=== PATIENT | male | born 1950 | race Caucasian/White ===

== ENCOUNTER 2017-03-11 06:35 | Inpatient (IN) ==
[2017-03-11] MEDS ORDERED: Ondansetron 4 MG/2 ML VIAL ONE (06:49)
[2017-03-11] MEDS ORDERED: *HR* Propofol 200 MG/20 ML VIAL IVP ONE (06:49)
[2017-03-11] MEDS ORDERED: Lidocaine -MPF 2% 2 ML VIAL ONE ×2 (06:49)
[2017-03-11] MEDS ORDERED: Dexamethasone 4 MG/ML VIAL ONE (06:49)
[2017-03-11] MEDS ORDERED: *HR* Rocuronium Bromide 50 MG/5 ML VIAL ONE (06:50)
[2017-03-11] MEDS ORDERED: CeFAZolin Pre 2,000 MG/100 ML 2,000 MG/100 ML BAG IVPB ONE (07:00)
[2017-03-11] MEDS ORDERED: Lidocaine -MPF 1% 2 ML VIAL ID ONE (07:00)
[2017-03-11] MEDS ORDERED: Ringers Solution, Lactated 1,000 ML IVC SCH (07:00)
--- NOTE | 2017-03-11 07:30 | History & Physical Report ---
Date of Encounter: 03/11/17 Time of Encounter: 07:29 24 Hour HP Update - Instructions Instructions: If the History and Physical is less than 30 days old and was completed prior to A.M. admission and or procedure and has NOT been updated on calendar day of procedure please complete this update prior to performing procedure. - Update Patient reports changes in Medical Condition: No Changes in examination, assessment, or condition: No Changes in Medication: No Preop tests/diagnostics Reviewed: Yes Surgery Remains Indicated: Yes Consent for Planned Operative Procedure(s) Verified: Yes - Pre-Operative Checklist Preoperative Checklist Indicated: Yes Prophylactic Antibiotic Ordered: Yes Home Medications Include Beta Vikki: No Is VTE Prophylaxis Indicated?: Yes
--- NOTE | 2017-03-11 07:45 | Anesthesia Evaluation PreOp ---
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: Denies Any Significant HX Other Medical History: Renal (ckd stage 3), Diabetes Type II, Other (prostate cancer) Anesthesia History: No Prior Anesthetic Complications (never been under general anesthesia) Alcohol Use: none Drug use: none Medications and Allergies Aspirin [Lo-Dose Aspirin EC] 81 mg PO DAILY 01/15/17 [History] Atorvastatin [Lipitor] 10 mg PO HS 01/15/17 [History] Cholecalciferol (D-3) [Vitamin D] 2,000 unit PO DAILY 01/15/17 [History] Ciprofloxacin HCl [Cipro] 1,000 mg PO DAILY 01/15/17 [History] Cyanocobalamin (Vitamin B-12) [Vitamin B-12] 1,000 mcg SL DAILY 01/15/17 [ History] HYDROcodone/Acet 5/325 mg [Winfield 5-325 mg] 1 tab PO Q4H PRN #15 tab 01/15/17 [Rx ] Insulin Glargine,Hum.rec.anlog [Lantus Solostar] 16 unit SQ DAILY 01/15/17 [ History] Liraglutide [Victoza 3-Andrew] 1.8 mg SQ DAILY 01/15/17 [History] Lisinopril-HCTZ 20-12.5 [Prinzide 20-12.5] 1 tab PO DAILY 01/15/17 [History] Magnesium Oxide [Magnesium] 400 mg PO DAILY 01/15/17 [History] Metformin HCl [Glucophage] 1,000 mg PO BID 01/15/17 [History] Omeprazole [PriLOSEC] 40 mg PO DAILY 01/15/17 [History] glipiZIDE [Glucotrol] 5 mg PO 0800 01/15/17 [History] 3 Allergy/AdvReac Type Severity Reaction Status Date / Time No Known Allergies Allergy Verified 03/11/17 07:45 - Meds/Allergy Pre-op Review Medications Reviewed: Yes Allergies Reviewed: Yes Beta Blockers on Current Med List: No Anesthesia Results - Labs Laboratory Tests 02/19/17 03/06/17 16:36 10:03 WBC 6.4 Hgb 10.8 L Hct 32.6 L Plt Count 200 Sodium 140 Potassium 4.4 Chloride 110 H Carbon Dioxide 22 BUN 26 Creatinine 1.65 H Est GFR ( Amer) 51 L Est GFR (Non-Af Amer) 42 L BUN/Creatinine Ratio 16 Glucose 152 H - Imaging EKG: report reviewed, image reviewed (SR) Anesthesia Exam Last Vital Signs Temp 97.9 F 03/11/17 07:25 Pulse 104 03/11/17 07:25 Resp 20 03/11/17 07:25 BP 151/86 03/11/17 07:25 Pulse Ox 100 03/11/17 07:25 Weight: 93 kg - HEENT Pupil (Motor): Pupils equal, EOMI
[2017-03-11] MEDS ORDERED: *HR* Midazolam HCl 2 MG/2 ML VIAL ONE (07:59)
--- NOTE | 2017-03-11 08:08 | Anesthesia Evaluation PreOp ---
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: Denies Any Significant HX Other Medical History: Renal (stage 3 CKD), Diabetes Type II (insulin depedent; well controlled), GERD Anesthesia History: No Prior Anesthetic Complications Alcohol Use: none Drug use: none Medications and Allergies Aspirin [Lo-Dose Aspirin EC] 81 mg PO DAILY 01/15/17 [History] Atorvastatin [Lipitor] 10 mg PO HS 01/15/17 [History] Cholecalciferol (D-3) [Vitamin D] 2,000 unit PO DAILY 01/15/17 [History] Cyanocobalamin (Vitamin B-12) [Vitamin B-12] 1,000 mcg SL DAILY 01/15/17 [ History] Insulin Glargine,Hum.rec.anlog [Lantus Solostar] 16 unit SQ DAILY 01/15/17 [ History] Liraglutide [Victoza 3-Andrew] 1.8 mg SQ DAILY 01/15/17 [History] Lisinopril-HCTZ 20-12.5 [Prinzide 20-12.5] 1 tab PO BID 01/15/17 [History] Magnesium Oxide [Magnesium] 400 mg PO DAILY 01/15/17 [History] Metformin HCl [Glucophage] 1,000 mg PO BID 01/15/17 [History] Omeprazole [PriLOSEC] 40 mg PO DAILY 01/15/17 [History] glipiZIDE [Glucotrol] 5 mg PO 0800 01/15/17 [History] Ketorolac OPTH Soln [Acular] 1 drop OP QID 03/11/17 [History] PrednisoLONE Acetate 1% Opth [PredFORTE 1%] 1 drop OP BID 03/11/17 [History] 3 Allergy/AdvReac Type Severity Reaction Status Date / Time No Known Allergies Allergy Verified 03/11/17 07:45 - Meds/Allergy Pre-op Review Medications Reviewed: Yes Allergies Reviewed: Yes Beta Blockers on Current Med List: No Anesthesia Results - Labs Laboratory Tests 01/02/17 02/19/17 03/06/17 08:10 16:36 10:03 WBC 6.4 Hgb 10.8 L Hct 32.6 L Plt Count 200 Sodium 140 Potassium 4.4 Chloride 110 H Carbon Dioxide 22 BUN 26 Creatinine 1.65 H Est GFR ( Amer) 51 L Est GFR (Non-Af Amer) 42 L BUN/Creatinine Ratio 16 Glucose 152 H Est Mean Plasma Glucose 160 Hemoglobin A1c 7.2 H Calculated Osmolality 298 Calcium 8.9 Phosphorus 2.6 - Imaging EKG: report reviewed, image reviewed (SR) Anesthesia Exam Last Vital Signs Temp 97.9 F 03/11/17 07:25 Pulse 104 03/11/17 07:25 Resp 20 03/11/17 07:25 BP 151/86 03/11/17 07:25 Pulse Ox 100 03/11/17 07:25 Weight: 93 kg NPO (# of Hours): >> 8 hrs - HEENT Pupil (Motor): Pupils equal, EOMI Mallampati: I Teeth: Normal Oral Opening: Greater than 3 - AUTHOR AGENT LOC: Oriented AUTHOR AGENT Motor: Normal RUE, Normal LUE, Normal RLE, Normal LLE, Normal Face - Cardiac Rhythm: Regular Murmur: None - Pulmonary Breath Sounds: bilateral Clear Respiratory Effort: Symmetrical Anesthesia Assess/Plan ASA Score: 3 Modified [place] Scale for Level of Consciousness: Cooperative, oriented, and tranquil Anesthetic Plan: General Monitoring Plan: Standard Monitors Recovery Plan: PACU
[2017-03-11] MEDS ORDERED: Lidocaine -MPF 4% 5 ML AMPUL ONE (08:13)
[2017-03-11] MEDS ORDERED: *HR* Succinylcholine 200 MG/10 ML VIAL IVP ONE (08:13)
[2017-03-11] MEDS ORDERED: *HR* FentaNYL (PF) 100 MCG/2 ML VIAL ONE ×2 (08:41→10:01)
[2017-03-11] MEDS ORDERED: *HR* HYDROmorphone (PF) 1 MG/ML SYRINGE IVP PRN ×2 (10:00→15:20)
[2017-03-11] MEDS ORDERED: Ondansetron 4 MG/2 ML VIAL IVP PRN ×2 (10:00→15:20)
[2017-03-11] MEDS ORDERED: Albuterol 2.5 MG/3 ML NEBULIZER IH PRN (10:00)
[2017-03-11] MEDS ORDERED: Neostigmine Methylsulfate 3 MG/3 ML SYRINGE ONE (11:07)
[2017-03-11] MEDS ORDERED: *HR* HYDROmorphone 2 MG/ML SYRINGE ONE (12:00)
--- NOTE | 2017-03-11 13:03 | Operative Note ---
Date of procedure: 03/11/17 Pre-op diagnosis: Prostate cancer Post-op diagnosis: same Procedure: Robotic-assisted radical prostatectomy. Implants: 20 Turkmen Espinosa catheter. 19 Turkmen Zen drain. Complications: None. Anesthesia: VINCENZO Surgeon: Geoff Dupree Estimated blood loss (cc): 150 Specimen: Prostate Condition: stable Disposition: PACU Procedure in Detail: INDICATIONS FOR PROCEDURE: Mr. Figueroa is a 67 year-old male with history of elevated PSA. He was found on prostate needle biopsy to have Rigoberto 3+3 prostate cancer. He is now presenting for robotic assisted prostatectomy. He was informed of the risks of the procedure including but not limited to bleeding , infection, injury to other structures, need for further procedures, lymphocele , urinary incontinence, urine leak, erectile dysfunction, bladder neck contracture, rectal injury, and the risk of anesthesia. He is willing to proceed. PROCEDURE: After informed consent was obtained, the patient was taken to the operating room, placed supine on the table. He was given IV antibiotics for antibiotic coverage. He had MATHEW's and SCD's placed on the lower extremities for DVT prophylaxis. Induction of general anesthesia was performed. The arms were tucked and he was placed in lithotomy position. He was secured to the OR table with padding. He was prepped and draped in the usual sterile fashion. A Espinosa catheter was inserted. A 10mm incision was made in the infraumbilical region.. The Veress needle was introduced. The water drop test passed. Pneumoperitoneum was initiated with low pressures initially. The abomen was insufflated. I then placed a 12mm camera port through this incision using the visual obturator using the 8 mm robotic camera. Once the trocar was in place, the 0 degree camera for the robot was placed in the field and remaining trocars were placed. Robotic ports were placed x 2 on the right side. We placed another robotic port to the left of the umbilicus. We also placed a 12mm port in the left lower quadrant and a 5mm port superior and to the left of the umbilicus. Once all trocars were in place, the robot was docked to the patient and the monopolar scissors were placed on the right robotic arm. The bipolar [place] was in the left robotic arm and the Prograsp in the 4th arm. I performed a small amount of lysis of adhesions freeing up the sigmoid colon. We initially retracted the bowel with the 4th arm. The medial umbilical ligaments were cauterized and the bladder was taken down off the anterior abdominal wall using electrocautery. The bladder was dissected down to the endopelvic fascia. The bladder was then grasped with a 4th arm and retracted cephalad. We then swept the periprostatic fat off the prostate as well as the pelvic sidewall. We then incised the endopelvic fascia on both sides and carried the incision up to the prostatic apex, sweeping the levator fibers off of the prostate. The puboprostatic ligaments were carefully incised. 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 This seemed to dive into the prostate. I didn't feel that I could release it or dissect it out while at the same time avoiding entry into the prostate. A Hem-o-dom clip was placed on the abdominal side and on the prostate side it was cauterized with bipolar. The artery was then cut with scissors. I then turned my attention to the dorsal venous complex. We then placed an 0 Vicryl suture through the dorsal venous complex and tied it down with a surgeon' s knot. Once the dorsal venous complex was ligated, we then turned our attention to the bladder neck which was incised with the monopolar cautery until the catheter was visualized at the bladder neck. The posterior bladder neck was then opened using the cautery until the space between the prostate and the bladder neck was visualized. Eventually, the vas deferens and seminal vesicals were encountered. The vas deferens were cauterized and divided. We pulled the seminal vesicles up into the field to help retract the prostate in cephalad direction. Denonvillier's fascia was dissected off the prostate posteriorly. The left nerve bundle was then released sharply. I carefully divided the pedicles using multiple Hem-o- dom clips to clip the larger prostatic pedicle. Once the pedicles were controlled the nerves were carefully dissected off the posterior aspect of the prostate. Attention was then turned to the right side. The nerve bundle was again released sharply and the pedicles were controlled using Hem-o-dom clips. The nerve bundle was then carefully dissected off the posterior aspect of the prostate. We then used the 4th arm to place the prostate on stretch in cephalad direction. We then transected the dorsal venous complex. The stitch over the dorsal venous complex came off. There was a mild amount of bleeding from the dorsal vein. Once I got to the urethra this was incised with cold scissors. I cut across the urethra until the catheter was visualized. The catheter was removed and the posterior urethra was transected. The prostate was then freed. I then oversewed the dorsal venous complex using an 0 Vicryl suture in a running fashion. Hemostasis was adequate. The urethral vesicle anastomosis was then performed with a 3-0 V-Dom suture in running fashion starting at 6 o'clock position. With two sutures tied together we then ran the right side up about senior living. The left side was then run around until the bladder was reanastamosed to the urethra. The final 20 Turkmen catheter was placed into the bladder and balloon filled with 15 mL of sterile water. The bladder was irrigated. No leak was identified. A 19 Turkmen Zen drain was placed through the trocar down into the pelvis. The trocar was removed and drain sewn in place with a suture. The robot was then undocked from the patient. Using laparoscopic instruments I then moved the string from the Endo Catch bag over to the umbilical port with the assistance of the 8 mm robotic camera. After extending the incision slightly with the electrocautery the EndoCatch bag was then removed from the camera port. The abdominal fascia was then closed in a running fashion with 0 Vicryl suture. All incisions were instilled with 0.25% Marcaine. The remaining trocars were removed under direct vision and all incisions were then closed with 4-0 Monocryl in subcuticular fashion. The patient was then awakened from general anesthesia and brought to the recovery room in good condition. All sponge, needle, and instrument counts were correct.
[2017-03-11] MEDS ORDERED: Insulin Regular, Human 100 UNIT/ML IV ONE (13:16)
--- NOTE | 2017-03-11 14:06 | Anesthesia Evaluation Post Op ---
Date of Encounter: 03/11/17 Time of Encounter: 14:05 - Vital Signs Vital Signs: Last Vital Signs Temp 98.7 F 03/11/17 13:42 Pulse 92 03/11/17 13:52 Resp 16 03/11/17 13:52 BP 149/84 03/11/17 13:52 Pulse Ox 100 03/11/17 13:52 - Lungs Lungs: Clear Ascult./Percussion - Airway Airway: Non-obstructed - Cardiovascular Regular Rate - Mental Status Mental Status: Alert & Oriented, Answers Appropriately - Pain Pain Scale: 2 - Nausea Vomiting Nausea Vomiting: Not Present - Hydration Hydration: Ice chips, Espinosa catheter - Discharge PostOp Status: Transfer Patient to floor
[2017-03-11] MEDS ORDERED: Ketorolac 15 MG/ML VIAL IVP PRN (15:20)
[2017-03-11] MEDS ORDERED: D5% in Water 1,000 ML IVC PRN (15:20)
[2017-03-11] MEDS ORDERED: Naloxone 0.4 MG/ML INJ IVP PRN (15:20)
[2017-03-11] MEDS ORDERED: Dextrose Gel 15 GM PO PRN ×2 (15:20)
[2017-03-11] MEDS ORDERED: *HR* Dextrose 50 % in Water (Syg) 50 ML SYRINGE IVP PRN (15:20)
[2017-03-11] MEDS ORDERED: Acetaminophen 325 MG TABLET PO PRN (15:20)
[2017-03-11] MEDS ORDERED: ceFAZolin 2,000 MG in D5% in Water 100 ML IVPB SCH (16:00)
[2017-03-11] MEDS ORDERED: *HR* OxyCODONE Immed Rel 5 MG TABLET PO PRN (16:00)
[2017-03-11] MEDS: 0.9 % Sodium Chloride 1,000 ML IVC SCH (16:20)
[2017-03-11] MEDS ORDERED: CeFAZolin Pre 2,000 MG/100 ML 2,000 MG/100 ML BAG IVPB SCH (18:00)
[2017-03-11] MEDS: *HR* Heparin 5,000 UNIT/ML VIAL SQ SCH (18:33)
[2017-03-11] MEDS: Insulin LISPRO 300 UNITS/3 ML VIAL SQ SCH (18:34)
[2017-03-11] MEDS: ceFAZolin 2,000 MG in D5% in Water 100 ML IVPB SCH (20:47)
[2017-03-11] MEDS: Lisinopril-HCTZ 20-12.5mg TABLET PO SCH (21:15)
[2017-03-12] MEDS: Insulin LISPRO 300 UNITS/3 ML VIAL SQ SCH ×3 (00:31→13:19)
[2017-03-12] MEDS: 0.9 % Sodium Chloride 1,000 ML IVC SCH (00:32)
[2017-03-12] MEDS: ceFAZolin 2,000 MG in D5% in Water 100 ML IVPB SCH (02:17)
[2017-03-12 04:41] LABS: Basophils % 0.1 %; Eosinophils % 0.3 %; Hematocrit 30.1 % (37.5-50.1); Hemoglobin 9.9 g/dL (12.9-16.9); Immature Granulocytes % 0.3 % (0-4); Lymphocytes # 0.9 K/mcL (0.6-4.6); Lymphocytes % 13.4 %; Mean Corpuscular HGB Conc 32.9 g/dL (31.6-35.5); Mean Corpuscular Hemoglobin 25.8 pg (28.0-33.3); Mean Corpuscular Volume 78.4 fL (83.0-100.0); Mean Platelet Volume 9.7 fL (9.4-12.4); Monocytes # 0.7 K/mcL (0.0-1.3); Monocytes % 9.9 %; Neutrophils # 5.3 K/mcL (1.6-8.9); Platelet Count 191 K/mcL (140-400); Red Blood Count 3.84 M/mcL (4.19-5.50); Red Cell Distribution Width 13.7 % (11.5-14.5)
[2017-03-12 04:55] LABS: Calcium 8.3 mg/dL (8.6-10.8)
[2017-03-12 04:56] LABS: Potassium 4.2 mEq/L (3.5-4.5)
--- NOTE | 2017-03-12 07:14 | Urology Progress Note ---
Date of Encounter: 03/12/17 Time of Encounter: 07:11 - Assessment and Plan (1) Prostate cancer Current Visit: Yes Status: Acute Assessment and plan: Postop day #1 status post robotic cystoprostatectomy. He is doing well. We will advance his diet to clear liquids this morning. We'll try a general diet at lunch. I will order a PT consult to help ambulate. His drain output is looking good, and I will remove it later today. (2) Diabetes Current Visit: Yes Status: Acute Assessment and plan: Continue sliding scale for now. 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 His blood counts are stable after surgery. We will continue to monitor. No indication for transfusion. Qualifiers: Chronic kidney disease stage: stage 2 (mild) Qualified Code(s): N18.2 - Chronic kidney disease, stage 2 (mild); D63.1 - Anemia in chronic kidney disease ; D63.1 - Anemia in chronic kidney disease Progress Note Narrative: Postoperative day #1 status post robotic-assisted radical prostatectomy. Doing well. Pain is well-controlled. He denies nausea. He reports passing gas. He has not ambulated yet. Objective Initial Vital Signs Temp Pulse Resp BP Pulse Ox 97.9 F 104 20 151/86 100 03/11/17 07:25 03/11/17 07:25 03/11/17 07:25 03/11/17 07:25 03/11/17 07:25 - General physical appearance Present: well developed, well nourished, no distress - Respiratory Present: normal respiratory effort - Abdomen Present: soft (Incisions are clean and dry and intact. KISHA is serosanguineous.) - Genitourinary Present: other (Espinosa in place.) Urine Appearance: Present: Clear - Labs 03/12/17 04:12 03/12/17 04:12 Diabetes panel 03/12/17 Range/Units 04:12 Sodium 141 (136-145) mEq/L Potassium 4.2 (3.5-4.5) mEq/L Chloride 111 H (98-109) mEq/L Carbon Dioxide 23 (19-29) mEq/L BUN 25 (8-26) mg/dL Creatinine 1.93 H (0.72-1.25) mg/dL Glucose 144 H (70-99) mg/dL Calcium 8.3 L (8.6-10.8) mg/dL Calcium panel 03/12/17 Range/Units 04:12 Calcium 8.3 L (8.6-10.8) mg/dL Pituitary panel 03/12/17 Range/Units 04:12 Sodium 141 (136-145) mEq/L Potassium 4.2 (3.5-4.5) mEq/L Chloride 111 H (98-109) mEq/L Carbon Dioxide 23 (19-29) mEq/L BUN 25 (8-26) mg/dL Creatinine 1.93 H (0.72-1.25) mg/dL Glucose 144 H (70-99) mg/dL Calcium 8.3 L (8.6-10.8) mg/dL Adrenal panel 03/12/17 Range/Units 04:12 Sodium 141 (136-145) mEq/L Potassium 4.2 (3.5-4.5) mEq/L Chloride 111 H (98-109) mEq/L Carbon Dioxide 23 (19-29) mEq/L BUN 25 (8-26) mg/dL Creatinine 1.93 H (0.72-1.25) mg/dL Glucose 144 H (70-99) mg/dL Calcium 8.3 L (8.6-10.8) mg/dL - VTE Documentation of Mechanical Device: Graduated compression elastic hosiery Consult Discharge Plan - Plan Referrals: Ovi Wynn MD [Primary Care Provider] -
[2017-03-12] MEDS ORDERED: 0.9 % Sodium Chloride 1,000 ML IVC SCH (07:16)
[2017-03-12] MEDS: Lisinopril-HCTZ 20-12.5mg TABLET PO SCH (09:22)
[2017-03-12] MEDS: *HR* Heparin 5,000 UNIT/ML VIAL SQ SCH (09:22)
[2017-03-12 14:45] VITALS: BP 131/74
--- NOTE | 2017-03-12 16:12 | Discharge Summary ---
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 (3) Anemia Priority: Secondary Status: Acute Qualifiers: Chronic kidney disease stage: stage 2 (mild) Qualified Code(s): N18.2 - Chronic kidney disease, stage 2 (mild); D63.1 - Anemia in chronic kidney disease ; D63.1 - Anemia in chronic kidney disease - Discharge Medications Prescriptions: Ciprofloxacin [Cipro] 500 mg PO ONCE #1 tablet Docusate [Colace] 100 mg PO BID #60 capsule OxyCODONE Immed Rel [Roxicodone 5 MG] 5 mg PO Q6H PRN #20 tablet PRN Reason: Severe pain Home Medications: Aspirin [Lo-Dose Aspirin EC] 81 mg PO DAILY 01/15/17 [History] Atorvastatin [Lipitor] 10 mg PO HS 01/15/17 [History] Cholecalciferol (D-3) [Vitamin D] 2,000 unit PO DAILY 01/15/17 [History] Cyanocobalamin (Vitamin B-12) [Vitamin B-12] 1,000 mcg SL DAILY 01/15/17 [ History] Insulin Glargine,Hum.rec.anlog [Lantus Solostar] 16 unit SQ DAILY 01/15/17 [ History] Liraglutide [Victoza 3-Andrew] 1.8 mg SQ DAILY 01/15/17 [History] Lisinopril-HCTZ 20-12.5 [Prinzide 20-12.5] 1 tab PO BID 01/15/17 [History] Magnesium Oxide [Magnesium] 400 mg PO DAILY 01/15/17 [History] Metformin HCl [Glucophage] 1,000 mg PO BID 01/15/17 [History] Omeprazole [PriLOSEC] 40 mg PO DAILY 01/15/17 [History] glipiZIDE [Glucotrol] 5 mg PO 0800 01/15/17 [History] Ketorolac OPTH Soln [Acular] 1 drop OP QID 03/11/17 [History] PrednisoLONE Acetate 1% Opth [PredFORTE 1%] 1 drop OP BID 03/11/17 [History] Ciprofloxacin [Cipro] 500 mg PO ONCE #1 tablet 03/12/17 [Rx] Docusate [Colace] 100 mg PO BID #60 capsule 03/12/17 [Rx] OxyCODONE Immed Rel [Roxicodone 5 MG] 5 mg PO Q6H PRN #20 tablet 03/12/17 [Rx] Allergies/Adverse Reactions: 3 Allergy/AdvReac Type Severity Reaction Status Date / Time No Known Allergies Allergy Verified 03/11/17 07:45 Labs on day of discharge: Labs from last 24 hours 03/12/17 03/12/17 03/12/17 05:47 04:12 04:12 WBC 7.0 RBC 3.84 L Hgb 9.9 L Hct 30.1 L MCV 78.4 L MCH 25.8 L MCHC 32.9 RDW 13.7 Plt Count 191 MPV 9.7 Immature Gran % 0.3 Seg Neutrophils % 76.0 Lymphocytes % 13.4 Monocytes % 9.9 Eosinophils % 0.3 Basophils % 0.1 Neutrophils # 5.3 Lymphocytes # 0.9 Monocytes # 0.7 Eosinophils # 0.0 Basophils # 0.0 Sodium 141 Potassium 4.2 Chloride 111 H Carbon Dioxide 23 BUN 25 Creatinine 1.93 H Est GFR ( Amer) 42 L Est GFR (Non-Af Amer) 35 L BUN/Creatinine Ratio 13 Glucose 144 H POC Glucose 146 H Calculated Osmolality 299 Calcium 8.3 L 03/12/17 03/11/17 00:17 16:49 WBC RBC Hgb Hct MCV MCH MCHC RDW Plt Count MPV Immature Gran % Seg Neutrophils % Lymphocytes % Monocytes % Eosinophils % Basophils % Neutrophils # Lymphocytes # Monocytes # Eosinophils # Basophils # Sodium Potassium Chloride Carbon Dioxide BUN Creatinine Est GFR ( Amer) Est GFR (Non-Af Amer) BUN/Creatinine Ratio Glucose POC Glucose 178 H 259 H Calculated Osmolality Calcium Date of admission: 03/12/17 09:52 Primary care physician: Ovi Wynn MD Consults: 03/12/17 07:15 Consult to Physical Therapy [CONS] Routine Comment: Evaluate, develop and implement POC Reason for Consult: Assist with ambulation Discharging clinician: Geoff Dupree Anticipated date of discharge: 03/12/17 - Patient Status Disposition: Home, Self-Care Condition: Good Functional capacity at discharge: independent ambulation Overall status at discharge: patient is progressing back to baseline - Discharge Instructions Follow Up With: Geoff Dupree MD [Partnered Physician] - (1 week for a voiding trial.) Additional Instructions: Please provide catheter care instructions - leg bag, night bag, leg strap and how to change the bags appropriately. 1. No heavy lifting greater than 20 pounds x2 weeks. 2. No tub baths x2 weeks. 3. May shower. 4. He should follow up in 1 weeks for postoperative check and voiding trial. 5. He should return for any fevers, chills, nausea, vomiting, or significant swelling/ecchymosis. - Diet and Activity Activity: increase activity as tolerated Diet: advance to your usual diet - Hospital Course Hospital course: Mr. Figueroa is a 67 year old male who presented with a history of prostate cancer. On March 11, 2017 he underwent a robotic radical prostatectomy. He had an uneventful postoperative course. On postoperative day #1 he was passing gas and had a bowel movement. He had a slow advancement of his diet but was tolerating general diet. His pain was well-controlled. He was then discharged home. His drain was removed that day. Final pathology returned on the day of discharge. He had a Lima 3+4 = 7 adenocarcinoma prostate found in 20% of the prostate. Margins were negative. He was staged as a pT2c. - Time Spent with Patient Total time spent providing and/or coordinating discharge services: Less than 30 minutes Exam Initial Vital Signs Temp Pulse Resp BP Pulse Ox 97.9 F 104 20 151/86 100 03/11/17 07:25 03/11/17 07:25 03/11/17 07:25 03/11/17 07:25 03/11/17 07:25 - General physical appearance Present: well developed, well nourished, no distress - Eyes Absent: icteric - ENT Present: normal nares - Neck Present: trachea midline - Respiratory Present: normal respiratory effort - Cardiovascular Cardiovascular exam IM: RRR - Abdomen Abdomen: Present: soft - VTE Documentation of Mechanical Device: Graduated compression elastic hosiery
== END 2017-03-12 17:40 | disposition home or self-care (01) | DRG 708 ==
LOC: SAMDAY 06:35 → 3BNU 15:11
PROVIDERS: ADMIT Urology; ATTEND Urology